=== PATIENT | male | born 1975 | race Caucasian/White ===

== ENCOUNTER 2017-03-19 13:51 | Emergency (ER) ==
[2017-03-19 13:58] VITALS: BP 115/78; TEMP 100.9; BMI 21.6
--- NOTE | 2017-03-19 14:13 | ED.PDOC ---
General ED Provider: Dr. 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 Symptoms Are: Still present Timing: Constant Initial Severity: Moderate Current Severity: Moderate Location: Left Character: Reports: Foreign body sensation Aggravating: Reports: Light Associated Signs and Symptoms: Reports: Photophobia, Clear drainage Acute Glaucoma Risk Factors: Eye Inflammation Visual Field: Abnormal Extraocular Movement: Abnormal Orbit Findings: Trauma Globe Findings: Intact Lid Findings: Erythema Conjunctival Findings: Red Corneal Findings: Clear Fluorescein Uptake: No (NO EVIDENCE ABRASION NOR FOREIG BODY IRRIGATED SCANT UPTAKE 6 TO 8SCLERAL S) Fundi: Normal Slit Lamp Used: No Differential Diagnoses: Foreign Body (RESOLVED) Review of Systems - Review Of Systems Constitutional: Reports: No symptoms Eyes: Reports: Pain, Photophobia Ears, Nose, Mouth, Throat: Reports: No symptoms Respiratory: Reports: No symptoms Cardiac: Reports: No symptoms GI: Reports: No symptoms : Reports: No symptoms Musculoskeletal: Reports: No symptoms Skin: Reports: No symptoms Neurological: Reports: No symptoms Endocrine: Reports: No symptoms Hematologic/Lymphatic: Reports: No symptoms All Other Systems: Other Past Medical History - Past Medical History Endocrine: Reports: None Cardiovascular: Reports: None Respiratory: Reports: None Hematological: Reports: None Gastrointestinal: Reports: None Genitourinary: Reports: None Neuro/Psych: Reports: None Musculoskeletal: Reports: None Cancer: Reports: None - Surgical History General Surgical History: Reports: None - Family History Family History: Reports: Unknown - Social History Smoking Status: Current some day smoker Hx Substance Use: No Alcohol Screening: None - Immunizations Tetanus Shot up to Date: Yes Physical Exam - Physical Exam Appearance: Well-appearing Ill-appearing: Mild Pain Distress: Moderate Eyes: DANIEL, EOMI, Conjunctiva inflammed ENT: Ears normal, Nose normal, Oropharynx normal Neck: Supple Respiratory: Airway patent Critical Care Note - Critical Care Note Total Time (mins): 0 Course - Course Orders, Labs, Meds: Orders Category Date Time Status Balanced Salt Solution [Eye-Stream] MEDS 03/19/17 13:54 Discontinued 1 bottle OP ONCE STA Fluorescein Sodium [Fluorets] MEDS 03/19/17 13:54 Discontinued 1 strip OP ONCE STA Proparacaine HCl [Proparacaine 0.5%] MEDS 03/19/17 13:54 Discontinued 2 drop OP ONCE STA Medications Discontinued Medications Generic Name Dose Route Start Last Admin Trade Name Radha PRN Reason Stop Dose Admin Eye Irrigation Solution 1 bottle 03/19/17 13:54 Eye-Stream OP 03/19/17 13:55 ONCE STA Fluorescein Sodium 1 strip 03/19/17 13:54 Fluorets OP 03/19/17 13:55 ONCE STA Proparacaine HCl 2 drop 03/19/17 13:54 Proparacaine 0.5% OP 03/19/17 13:55 ONCE STA Vital Signs: Temp Pulse Resp BP Pulse Ox 03/19/17 13:54 100.9 F H 93 H 20 115/78 98 Departure - Departure Time of Disposition: 14:17 Disposition: HOME SELF-CARE Discharge Problem: Foreign body accidentally entering eye and adnexa Instructions: Eye Foreign Body (ED) Condition: Good Pt referred to PMD for follow-up: Yes Additional Instructions: GENTAMYCIN FOUR TIMES A DAY FOR TWO DAYS 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
[2017-03-19] MEDS: EYE-STREAM OP STA (14:26)
[2017-03-19] MEDS: FLUORETS OP STA (14:26)
[2017-03-19] MEDS: PROPARACAINE 0.5% OP STA (14:26)
== END 2017-03-19 14:35 | disposition home or self-care (01) ==
LOC: ED 13:51
DX: T15.92XA Foreign body on external eye, part unspecified, left eye, initial encounter (principal); F17.210 Nicotine dependence, cigarettes, uncomplicated
CPT/HCPCS: 99282